=== PATIENT | male | born 1960 | race Caucasian/White ===

== ENCOUNTER 2016-06-05 22:12 | Observation (INO) | payer BC ==
--- NOTE | 2016-06-05 22:23 | EDPHY ---
H & P Stated Complaint: abd muscle spasms HPI/ROS: HPI CHIEF COMPLAINT: Left-sided back pain radiating around to the left front HISTORY OF PRESENT ILLNESS: This patient very pleasant 55-year-old male significant past medical history for hypertension, who presents to the emergency room with pleuritic pain. He tells me that for the past 2 weeks he has had left-sided mid back pain that radiates around to the left abdomen under his left diaphragm. He does tell me that he has been present for 2 weeks however it has been persistently worse over the past 24 hours it hurts every time he takes a deep breath in. Denies shortness of breath, denies chest pain. It is worse with positional changes especially when he goes to sit up. He denies midline back pain. He denies hemoptysis, cough, nausea, vomiting, diaphoresis, the pain radiates from the left mid back around to the left anterior chest diaphragmatic. Worse when he takes a deep breath in. Very sharp. Denies any trauma he does tell me that he pulled a comforter about 2 weeks ago with his dog gone and thinks he may have injured his back. 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 Exam Constitutional triage nursing summary reviewed, vital signs reviewed, awake/ alert. Eyes normal conjunctivae and sclera, EOMI, PERRLA. HENT normal inspection, atraumatic, moist mucus membranes, no epistaxis, neck supple/ no meningismus, no raccoon eyes. Respiratory clear to auscultation bilaterally, normal breath sounds, no respiratory distress, no wheezing. Cardiovascular rate normal, regular rhythm, no murmur, no edema, distal pulses normal. Gastrointestinal soft, non-tender, no rebound, no guarding, normal bowel sounds, no distension, no pulsatile mass. Genitourinary no CVA tenderness. Musculoskeletal no midline vertebral tenderness, full range of motion, no calf swelling, no tenderness of extremities, no meningismus, good pulses, neurovascularly intact. Skin there is erythema blotchiness present to the left back and left lateral chest possible zoster no vesicular lesions, pink, warm, & dry, no rash, skin atraumatic. Neurologic awake, alert and oriented x 3, AAOx3, moves all 4 extremities equally, motor intact, sensory intact, CN II-XII intact, normal cerebellar, normal vision, normal speech. Psychiatric normal mood/affect. Heme/Lymph/Immune no lymphadenopathy. Differential Diagnosis: Includes but is not limited to in a particular order: Pleurisy, pneumonia, pulmonary embolism, herpes zoster, rib contusion, rib fracture, rib splint Medical Decision Making: The patient had an IV established be medicated with IV fentanyl for pain control, placed on full campus monitor, we will obtain blood work, patient had an EKG, chest x-ray, CT angiogram of the chest to rule out pulmonary embolism. D-dimer. Be gently hydrated with IV fluids. Re-evaluation: EKG interpretation by me on record in [employer] system. Impression time of EKG 06/20/1952, this is sinus rhythm rate of 89, there is no acute ischemic changes appreciated specifically is no ST elevation, ST depression, T-wave abnormalities. No prolonged intervals. It is noted that there is a Q3T3 in lead 3. Nonspecific for pulmonary embolism. CT scan of the angiogram chest. The results of the study are shows multiple pulmonary emboli, bilateral lower lobes, on the left lower lobe there is pulmonary infarct with pleural effusion . The study was read by Dr. Perez I viewed the images myself on the PACS system. Source: Patient - Personal History Current Tetanus/Diphtheria Vaccine: Yes - Medical/Surgical History Hx Asthma: No Hx Chronic Respiratory Disease: No Hx Diabetes: No Hx Cardiac Disease: No Hx Renal Disease: No Hx Cirrhosis: No Hx Alcoholism: No Hx HIV/AIDS: No Hx Splenectomy or Spleen Trauma: No Other PMH: PSHx: appy, inguinal hernia repair. PMHx: HTN - Social History Smoking Status: Never smoked Constitutional: Initial Vital Signs Temperature (C) 36.7 C 06/05/16 22:15 Heart Rate 88 06/05/16 22:15 Respiratory Rate 17 06/05/16 22:15 Blood Pressure 175/88 H 06/05/16 22:15 O2 Sat (%) 93 06/05/16 22:15 O2 Delivery Mode Room Air O2 (L/minute) 2 Allergies/Adverse Reactions: indomethacin [From Indocin] Allergy (Mild, Verified 09/21/11 16:40) UPSET STOMACH indomethacin sodium [From Indocin] Allergy (Mild, Verified 09/21/11 16:40) UPSET STOMACH EGGS Allergy (Mild, Uncoded 09/21/11 16:40) Rash PERCOCET Allergy (Mild, Uncoded 09/21/11 16:40) DIZZY/NAUSEA Home Medications: Medication Instructions Recorded Ascorbic Acid [Vitamin C 250 mg 500 mg PO DAILY 06/05/16 (*)] Cholecalciferol Vit D3 [Vitamin D3 1,000 units PO DAILY 06/05/16 (*)] Metoprolol Succinate Xr [Toprol Xl 50 mg PO DAILY 06/05/16 50 mg (*)] Multivitamins [Multivitamin (*)] 1 each PO DAILY 06/05/16 Acetaminophen [Tylenol 325mg (*)] 650 mg PO Q4HRS PRN #0 tab 06/06/16 Enoxaparin [Lovenox 100 MG (*)] 90 mg SC BID #14 syr 06/06/16 Herbals/Supplements -Info Only 1 ea PO DAILY 06/06/16 Hydrocodone/APAP 5/325 [[place] 1 - 2 tab PO Q4HRS PRN #30 tab 06/06/16 5/325 (*)] Warfarin Sodium 5 mg PO DAILY #30 tablet 06/06/16 Medical Decision Making - Data Points Laboratory Results: Laboratory Results 06/05/16 22:40 06/05/16 22:40 Medications Given: Discontinued Medications Acetaminophen (Tylenol) 650 mg PO Q4HRS PRN PRN Reason: Pain, Mild/Fever, Can Take PO Stop: 12/03/16 00:10 Last Admin: 06/06/16 06:04 Dose: 650 mg Enoxaparin Sodium (Lovenox) 90 mg SC EDNOW ONE Stop: 06/05/16 23:36 Last Admin: 06/05/16 23:52 Dose: 90 mg Enoxaparin Sodium (Lovenox) 90 mg SC EDNOW ONE Stop: 06/05/16 23:31 Last Admin: 06/05/16 23:52 Dose: Not Given Enoxaparin Sodium (Lovenox) 90 mg SC BID HALEY Stop: 12/03/16 11:59 Last Admin: 06/06/16 12:14 Dose: 90 mg Fentanyl (Sublimaze) 100 mcg IVP EDNOW ONE Stop: 06/05/16 22:30 Last Admin: 06/05/16 22:35 Dose: 100 mcg Sodium Chloride (Ns) 1,000 mls @ 0 mls/hr IV ONCE ONE PRN Reason: As Directed Stop: 06/05/16 22:29 Last Admin: 06/05/16 23:00 Dose: 1,000 mls Sodium Chloride (Ns) 1,000 mls @ 75 mls/hr IV CONT HALEY Stop: 12/03/16 00:14 Last Admin: 06/06/16 02:30 Dose: 1,000 mls Metoprolol Succinate (Toprol Xl) 50 mg PO DAILY [facility] Stop: 12/03/16 11:59 Last Admin: 06/06/16 12:15 Dose: 50 mg Departure - Departure Disposition: [facility] Acute Clinical Impression: Bilateral pulmonary embolism, Infarct of lung, Pleural effusion Condition: Fair
[2016-06-05] MEDS ORDERED: NS 1,000 ML IV ONE (22:28)
[2016-06-05] MEDS ORDERED: fentaNYL 100 MCG/2 ML INJ IVP ONE (22:29)
--- NOTE | 2016-06-05 22:52 | CPEKG ---
Heart Rate: 89 RR Interval: 674 P-R Interval: 144 QRSD Interval: 84 QT Interval: 368 QTC Interval: 448 P Holcomb: 27 QRS Holcomb: 14 T Wave Holcomb: 4 EKG Severity - NORMAL ECG - EKG Impression: SINUS RHYTHM Electronically Signed By: Colton Campos 06-Jun-2016 10:52:54
[2016-06-05] MEDS ORDERED: IOPAMIDOL (ISOVUE 370) 100 ML BTL IV ONE (22:53)
[2016-06-05 22:57] LABS: ABSOLUTE IMMATURE GRANULOCYTES 0.13 10^3/uL (0.00-0.10); ADD DIFF? NO; ADD MORPH? NO; ADD SCAN? NO; ATYPICAL LYMPHOCYTE FLAG 0 (0-99); FRAGMENT RBC FLAG 0 (0-99); HEMATOCRIT 43.6 % (40.0-51.0); HEMOGLOBIN 15.2 g/dL (13.7-17.5); LEFT SHIFT FLG 0 (0-99); LIPEMIA HEMOLYSIS FLAG 90 (0-99); MEAN CELL HEMOGLOBIN 33.4 pg (27.9-34.1); MEAN CELL HEMOGLOBIN CONCENTR. 34.9 g/dL (32.4-36.7); MEAN CELL VOLUME 95.8 fL (81.5-99.8); MEAN PLATELET VOLUME 8.7 fL (8.7-11.7); PLATELET CLUMPS FLAG 0 (0-99); PLATELET COUNT 309 10^3/uL (150-400); RED BLOOD CELL COUNT 4.55 10^6/uL (4.40-6.38); RED CELL DISTRIBUTION WIDTH 12.4 % (11.5-15.2)
--- NOTE | 2016-06-05 22:58 | DX ---
Portable chest at 2244 hours History: Chest pain Findings: Alveolar opacity in the left lower lobe. Borderline cardiac size. No pleural effusion or pn eumothorax. Impression: 1. Left lower lobe infiltrate which may represent pneumonia. 2. Recommend follow-up until clear.
[2016-06-05 23:07] LABS: INR 1.1 (0.83-1.16); PROTIME(PATIENT) 14.1 SEC (12.0-15.0)
[2016-06-05 23:08] LABS: ALANINE AMINOTRANSFERASE 42 IU/L (21-72); ALBUMIN 3.5 g/dL (3.5-5.0); ALKALINE PHOSPHATASE 97 IU/L (38-126); ANION GAP 10 mEq/L (8-16); APTT 27.5 SEC (23.0-38.0); ASPARTATE AMINOTRANSFERASE 22 IU/L (17-59); BILIRUBIN,TOTAL 0.7 mg/dL (0.1-1.4); BILIRUBIN-CONJUGATED 0.2 mg/dL (0.0-0.5); BILIRUBIN-UNCONJUGATED 0.5 mg/dL (0.0-1.1); CALCIUM 8.7 mg/dL (8.5-10.4); CARBON DIOXIDE 30 mEq/l (22-31); CHLORIDE 102 mEq/L (97-110); CREATININE 1.5 mg/dL (0.7-1.3); GLOMERULAR FILTRATION RATE 48; GLUCOSE 119 mg/dL (70-100); MAGNESIUM 2.1 mg/dL (1.6-2.3); POTASSIUM 4.2 mEq/L (3.5-5.2); SODIUM 142 mEq/L (134-144); TOTAL PROTEIN 7.1 g/dL (6.3-8.2)
[2016-06-05 23:19] LABS: CREATINE KINASE-MB FRACTION 0.36 ng/mL (0-3.19); TROPONIN I < 0.012 ng/mL (0-0.034)
[2016-06-05] MEDS ORDERED: ENOXAPARIN 100 MG/ML SYR SC ONE (23:30)
[2016-06-05] MEDS ORDERED: ENOXAPARIN 80 MG/0.8 ML SYR SC ONE (23:35)
--- NOTE | 2016-06-05 23:40 | CT ---
CT Chest Pulmonary Angiogram With Contrast Enhancement and Multiplanar Reconstructions at 2315 hours History: Chest pain, shortness of breath Comparison: None. Technique: 1.25 mm axial multidetector helical CT angiogram imaging was performed through the chest w hile 80 mL Isovue-370 were injected intravenously without complication. The images were then transfe rred to an independent workstation where multiplanar and three-dimensional reconstructions were perfo rmed by the interpreting physician and reviewed at multiple windows. Dose reduction techniques were u tilized. CT Pulmonary Angiogram Findings: Positive intraluminal pulmonary thromboemboli identified involving s everal bilateral lower lobe pulmonary arterials. No central saddle embolus. No aortic aneurysm or dis section.. CT Chest Findings: There is normal in size without pericardial effusion. Small left pleural effusion. Left lower lobe alveolar infiltrate which may represent pulmonary infarct or pneumonitis. No pneumot horax. A few mediastinal lymph nodes without significant adenopathy. No destructive osseous lesions. Impression: 1. Positive pulmonary thromboemboli bilateral lower lobes, moderate volume. 2. Small left pleural effusion. 3. Left lower lobe infiltrate which may represent infarct or pneumonitis. 4. No pericardial effusion, aortic aneurysm, or significant adenopathy. Findings and recommendations discussed with Dr. Santos Sierra at 2335 hours.
[2016-06-06] MEDS ORDERED: ACETAMINOPHEN 325 MG TAB PO PRN (00:11)
[2016-06-06] MEDS ORDERED: ONDANSETRON 4 MG/2 ML VIAL IVP PRN (00:11)
[2016-06-06] MEDS ORDERED: HYDROCODONE/APAP 5/325 TAB PO PRN (00:11)
[2016-06-06] MEDS ORDERED: ONDANSETRON DISINTEGRATING 4 MG TAB PO PRN (00:11)
[2016-06-06] MEDS ORDERED: NS 1,000 ML IV SCH (00:15)
--- NOTE | 2016-06-06 01:53 | PDGENHP ---
History and Physical - Chief Complaint back pain with inspiration - History of Present Illness Patient is a 55 year with history of hypertension who presents to the ED complaining of pleuritic-type back pain. Patient states about 3 weeks ago he noticed right calf pain, lasted about 3 days, not associated with any obvious swelling or erythema, and he attributed it to physical exertion. The calf pain resolved and then about 2 weeks ago, patient suddenly felt left back and flank pain, which again attributed to physical exertion (pulling the bedsheets with his dog on top of them), but pain mostly occurred only with deep inspiration. Describes the pain located in his left mid back radiating across his anterior chest. He denies any associated shortness of breath, palpitations, and and over the past 2 weeks has continued with his routine exercise regimen ( stationary bike 3x/week) without any change in his exercise tolerance. Today he felt the pain had increased in severity, and given its persistence over the past 2 weeks he decided to come to the ED for further evaluation. Patient does regularly check his BP at home and has noticed the range has been higher than usual over the past 2 weeks. Patient denies any recent travel, long trips or surgeries. On arrival to the ED patient was mildly hypertensive, but afebrile and hemodynamically stable, saturating well on room air. Labs revealed normal CBC , BMP and troponin, but elevated D-dimer. EKG revealed sinus rhythm with inferior Q and T-wave inversion. CT angio was then obtained and revealed bilateral lower lobe pulmonary emboli with evidence of possible left lower lobe infarct, with associated pleural effusion. He was initiated on enoxaparin and admitted to the hospitalist service for further management. History Information - Allergies/Home Medication List Allergies/Adverse Reactions: indomethacin [From Indocin] Allergy (Mild, Verified 09/21/11 16:40) UPSET STOMACH indomethacin sodium [From Indocin] Allergy (Mild, Verified 09/21/11 16:40) UPSET STOMACH EGGS Allergy (Mild, Uncoded 09/21/11 16:40) Rash PERCOCET Allergy (Mild, Uncoded 09/21/11 16:40) DIZZY/NAUSEA Home Medications: Aspirin 81mg (*) 06/05/16 [Last Taken Unknown] CO Q-10 06/05/16 [Last Taken Unknown] Metoprolol Succinate 06/05/16 [Last Taken Unknown] Multi-Vitamin Daily 06/05/16 [Last Taken Unknown] VITAMIN D 06/05/16 [Last Taken Unknown] Vitamin C 06/05/16 [Last Taken Unknown] I have personally reviewed and updated: family history, medical history, social history, surgical history - Past Medical History Additional medical history: HTN - Surgical History Additional surgical history: appendectomy. 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 Review of Systems ROS: 10pt was reviewed & negative except for what was stated in HPI & below Physical Exam Temp Pulse Resp BP Pulse Ox 36.9 C 82 20 155/88 H 97 06/06/16 00:56 06/06/16 00:56 06/06/16 00:56 06/06/16 00:56 06/06/16 00:56 O2 (L/minute) 2 Constitutional: no apparent distress, appears nourished, not in pain Eyes: PERRL, anicteric sclera, EOMI Ears, Nose, Mouth, Throat: moist mucous membranes, hearing normal, ears appear normal, no oral mucosal ulcers Cardiovascular: regular rate and rhythym, no murmur, rub, or gallop, pulses symmetric bilaterally, No JVD, No edema Peripheral Pulses: 2+: dorsalis-pedis (R), dorsalis-pedis (L) Respiratory: no respiratory distress, no rales or rhonchi, inspiratory crackles (in L lower lung field) Gastrointestinal: normoactive bowel sounds, soft, non-tender abdomen, no palpable masses, No guarding, No rebound Genitourinary: no bladder fullness, no bladder tenderness Skin: warm, normal color, no rashes or abrasions, no fluctuance, no induration, No mottled Musculoskeletal: full muscle strength, no muscle tenderness, normal joint ROM, no joint effusions Neurologic: AAOx3, sensation intact bilaterally, CN II-XII Intact, No weakness, No numbness, No facial droop Psychiatric: interacting appropriately, not anxious, not encephalopathic, thought process linear Lab Data & Imaging Review 06/05/16 22:40 06/05/16 22:40 WBC 12.75 10^3/uL (3.80-9.50) H 06/05/16 22:40 RBC 4.55 10^6/uL (4.40-6.38) 06/05/16 22:40 Hgb 15.2 g/dL (13.7-17.5) 06/05/16 22:40 POC Hgb 15.3 gm/dL (14.5-17.3) 06/05/16 22:40 Hct 43.6 % (40.0-51.0) 06/05/16 22:40 POC Hct 45 % (42.8-50.6) 06/05/16 22:40 MCV 95.8 fL (81.5-99.8) 06/05/16 22:40 MCH 33.4 pg (27.9-34.1) 06/05/16 22:40 MCHC 34.9 g/dL (32.4-36.7) 06/05/16 22:40 RDW 12.4 % (11.5-15.2) 06/05/16 22:40 Plt Count 309 10^3/uL (150-400) 06/05/16 22:40 MPV 8.7 fL (8.7-11.7) 06/05/16 22:40 Neut % (Auto) 61.2 % (39.3-74.2) 06/05/16 22:40 Lymph % (Auto) 25.3 % (15.0-45.0) 06/05/16 22:40 [place] % (Auto) 11.4 % (4.5-13.0) 06/05/16 22:40 Eos % (Auto) 0.9 % (0.6-7.6) 06/05/16 22:40 Baso % (Auto) 0.2 % (0.3-1.7) L 06/05/16 22:40 Nucleat RBC Rel Count 0.0 % (0.0-0.2) 06/05/16 22:40 Absolute Neuts (auto) 7.81 10^3/uL (1.70-6.50) H 06/05/16 22:40 Absolute Lymphs (auto) 3.22 10^3/uL (1.00-3.00) H 06/05/16 22:40 Absolute Monos (auto) 1.45 10^3/uL (0.30-0.80) H 06/05/16 22:40 Absolute Eos (auto) 0.11 10^3/uL (0.03-0.40) 06/05/16 22:40 Absolute Basos (auto) 0.03 10^3/uL (0.02-0.10) 06/05/16 22:40 Absolute Nucleated RBC 0.00 10^3/uL (0-0.01) 06/05/16 22:40 Immature Gran % 1.0 % (0.0-1.1) 06/05/16 22:40 Immature Gran # 0.13 10^3/uL (0.00-0.10) H 06/05/16 22:40 PT 14.1 SEC (12.0-15.0) 06/05/16 22:40 INR 1.10 (0.83-1.16) 06/05/16 22:40 APTT 27.5 SEC (23.0-38.0) 06/05/16 22:40 D-Dimer 2.10 ug/mLFEU (0.00-0.50) H 06/05/16 22:40 POC Sodium 141 mEq/L (134-144) 06/05/16 22:40 Sodium 142 mEq/L (134-144) 06/05/16 22:40 POC Potassium 3.8 mEq/L (3.3-5.0) 06/05/16 22:40 Potassium 4.2 mEq/L (3.5-5.2) 06/05/16 22:40 POC Chloride 100 mEq/L (96-108) 06/05/16 22:40 Chloride 102 mEq/L (97-110) 06/05/16 22:40 Carbon Dioxide 30 mEq/l (22-31) 06/05/16 22:40 Anion Gap 10 mEq/L (8-16) 06/05/16 22:40 POC BUN 22 mg/dL (7-23) 06/05/16 22:40 BUN 21 mg/dL (7-23) 06/05/16 22:40 Creatinine 1.5 mg/dL (0.7-1.3) H 06/05/16 22:40 POC Creatinine 1.5 mg/dL (0.8-1.5) 06/05/16 22:40 Estimated GFR 48 06/05/16 22:40 Glucose 119 mg/dL (70-100) H 06/05/16 22:40 POC Glucose 123 mg/dL (70-100) H 06/05/16 22:40 Calcium 8.7 mg/dL (8.5-10.4) 06/05/16 22:40 Magnesium 2.1 mg/dL (1.6-2.3) 06/05/16 22:40 Total Bilirubin 0.7 mg/dL (0.1-1.4) 06/05/16 22:40 Conjugated Bilirubin 0.2 mg/dL (0.0-0.5) 06/05/16 22:40 Unconjugated Bilirubin 0.5 mg/dL (0.0-1.1) 06/05/16 22:40 AST 22 IU/L (17-59) 06/05/16 22:40 ALT 42 IU/L (21-72) 06/05/16 22:40 Alkaline Phosphatase 97 IU/L (38-126) 06/05/16 22:40 Creatine Kinase 42 IU/L (0-224) 06/05/16 22:40 CK-MB (CK-2) Fraction 0.36 ng/mL (0-3.19) 06/05/16 22:40 Troponin I < 0.012 ng/mL (0-0.034) 06/05/16 22:40 NT-Pro-B Natriuret Pep 55 pg/mL (0-125) 06/05/16 22:40 Total Protein 7.1 g/dL (6.3-8.2) 06/05/16 22:40 Albumin 3.5 g/dL (3.5-5.0) 06/05/16 22:40 Lipase 113.0 IU/L (23-300) 06/05/16 22:40 Visualized and Interpreted Chest x-ray results: Yes Chest X-Ray results: other (left lower effusion) Visualized and Interpreted imaging results: Yes Interpretation: CT angio chest: b/l lower lobe pulmonary emboli, moderate clot burden; L pleural effusion with possible pulmonary infarct vs atelectasis Visualized and Interpreted EKG results: Yes EKG Interpretation: Positive for: normal sinsus rhythm (S in I, Q and TWI in III ; no other st changes) Assessment & Plan Assessment: Patient is a 55-year-old male with a history of hypertension who presents to the ED with complaint of pleuritic type pain for the past 2 weeks, ED workup reveals bilateral pulmonary emboli with possible pulmonary infarct. Plan: # acute/subacute bilateral pulmonary embolism Patient describes symptoms have been present for about 2 weeks and exercise tolerance has not been affected by symptoms. Patient currently hemodynamically stable, without hypoxia and negative troponin. EKG does show nonspecific changes possibly due to RH strain. At this time there are no obvious provoking factors for the PE. Will admit, trend cardiac enzymes and check TTE in AM. Initiated on lovenox for systemic anticoagulation in the ED. Discussed in detail the options for long-term systemic anticoagulation (warfarin vs NOAC) and patient and will think options over tonight and decide in the AM. # leukocytosis Patient without fever or other clinical signs/symptoms of infection. Likely reactive, however, patient is at risk for developing pneumonia due to splinting/ atelectasis. CT chest reveals LLL infiltrate concerning for infarct vs consolidation. Will have low threshold to start antibiotics if leukocytosis increases or patient develops a fever. # elevated creatinine Slightly elevated cr at 1.5, previously noted to be 1.2 in 2013, so likely chronic kidney disease. Given he received CTA contrast load, will continue IVF overnight and reassess BMP in AM. # chronic Hypertension BP slightly elevated on presentation. Will monitor and continue home metoprolol. # dispo: admit to observation status for treatment of pulmonary embolism # gen: cardiac diet DVT ppx: on systemic lovenox Full code
[2016-06-06 02:47] LABS: COLOR YELLOW; LEUKOCYTE ESTERASE,URINE NEGATIVE (NEGATIVE); NITRITE,URINE NEGATIVE (NEGATIVE)
[2016-06-06 05:20] LABS: % IMMATURE GRANULYOCYTES 1.2 % (0.0-1.1); ABSOLUTE IMMATURE GRANULOCYTES 0.12 10^3/uL (0.00-0.10); ADD DIFF? NO; ADD MORPH? NO; ADD SCAN? NO; ATYPICAL LYMPHOCYTE FLAG 30 (0-99); FRAGMENT RBC FLAG 0 (0-99); HEMATOCRIT 36.7 % (40.0-51.0); HEMOGLOBIN 12.7 g/dL (13.7-17.5); LEFT SHIFT FLG 10 (0-99); LIPEMIA HEMOLYSIS FLAG 90 (0-99); MEAN CELL HEMOGLOBIN 33.6 pg (27.9-34.1); MEAN CELL HEMOGLOBIN CONCENTR. 34.6 g/dL (32.4-36.7); MEAN CELL VOLUME 97.1 fL (81.5-99.8); MEAN PLATELET VOLUME 8.9 fL (8.7-11.7); PLATELET CLUMPS FLAG 10 (0-99); PLATELET COUNT 234 10^3/uL (150-400); RED BLOOD CELL COUNT 3.78 10^6/uL (4.40-6.38); RED CELL DISTRIBUTION WIDTH 12.3 % (11.5-15.2)
[2016-06-06 05:29] LABS: INR 1.22 (0.83-1.16); PROTIME(PATIENT) 15.4 SEC (12.0-15.0)
[2016-06-06 05:30] LABS: APTT 34.8 SEC (23.0-38.0)
[2016-06-06 05:41] LABS: ANION GAP 7 mEq/L (8-16); CALCIUM 8.2 mg/dL (8.5-10.4); CARBON DIOXIDE 25 mEq/l (22-31); CHLORIDE 109 mEq/L (97-110); GLOMERULAR FILTRATION RATE > 60; GLUCOSE 104 mg/dL (70-100); MAGNESIUM 2.1 mg/dL (1.6-2.3); POTASSIUM 4.6 mEq/L (3.5-5.2); SODIUM 141 mEq/L (134-144)
[2016-06-06 05:50] LABS: TROPONIN I < 0.012 ng/mL (0-0.034)
--- NOTE | 2016-06-06 08:52 | CPEKG ---
Heart Rate: 78 RR Interval: 769 P-R Interval: 152 QRSD Interval: 90 QT Interval: 392 QTC Interval: 447 P Starford: 28 QRS Starford: 19 T Wave Starford: -16 EKG Severity - BORDERLINE ECG - EKG Impression: SINUS RHYTHM EKG Impression: BORDERLINE T ABNORMALITIES, INFERIOR LEADS Electronically Signed By: Colton Campos 06-Jun-2016 10:52:50
--- NOTE | 2016-06-06 09:09 | US ---
Ultrasound and Venous Duplex Doppler Study of the Right and Left Lower Extremities Clinical History: 55-year-old male noted to have moderate volume bilateral lower lobe pulmonary arter y thromboemboli on June 05, 2016. Evaluate for DVT. Technique: A high frequency transducer was used for imaging and Doppler study of the veins of the ri ght and left lower extremities. Pulsed Doppler and color Doppler were utilized, along with various maneuvers to assess flow in the veins. Comparison Study: None. Findings: RIGHT LEG: The deep veins are normally compressible between the groin and the upper calf, and have no rmal Doppler waveforms. There is no sonographic evidence of deep venous thrombosis. The greater saphe nous vein is compressible. The popliteal fossa is unremarkable. LEFT LEG: The deep veins are normally compressible between the groin and the upper calf, and have nor mal Doppler waveforms, with the exception of the left popliteal vein and the paired peroneal veins, w hich are noncompressible and contain hypoechoic clot. The greater saphenous vein is compressible. The popliteal fossa is unremarkable. Impression: 1. There is no sonographic evidence of deep or superficial vein thrombosis in the right lower extremi ty. 2. There is deep venous thrombosis identified in the left popliteal vein, and in both of the left per meza veins.
[2016-06-06 09:32] VITALS: O2SAT 95
--- NOTE | 2016-06-06 10:39 | ECHO ---
[id number] + + [id number] : : [place] [id number] : : [phone] + + Adult Echocardiographic Report + ---------+ :Name: LISA BANKS RStudy Date: 06/06/2016 08:34 AM : : Hospital Admission Number: [id number] Michelle day: 240: :: 1960 Gender: Male Height: 67 i n : :Age: 55 yrs Race: WH Weight: 200 lb : :Reason For Study: Eval LV Fx : : BSA: 2.0 met ers2 : :History: Pulmonary Embolism : + ---------+ MMode/2D Measurements & Calculations IVSd: 0.80 cm LVIDd: 4.6 cm FS: 37.2 % Ao root diam: 2.9 cm LVPWd: 0.94 cm LVIDs: 2.9 cm EDV(Teich): 95.6 ml ACS: 1.9 cm ESV(Teich): 31.4 ml EF(Teich): 67.2 % Normal Measurement Values: + + :LVIDd (3.5-5.7cm) IVSd (0.6-1.1cm) LVPWd (0.6-1.1cm) Aortic Root (2.0-3.7cm)Left Atrium (1.5-4.0cm): :LV Vol(d) (76-115ml) LV Vol(s) (29-48ml) Ejec Fraction (50-65%)PV Brian (0.6- 1.2m/s) TV Brian (0.4-1.0m/s) : :MV E Brian (0.8-1.0m/s)MV A Brian (0.3-1.0m/s)LVOT Brian (0.7-1.2m/s) Asc Ao Brian ( 0.9-1.8m/s) : + + Doppler Measurements & Calculations MV E max brian: Ao V2 max: LV V1 max: PA V2 max: 77.0 cm/sec 167.0 cm/sec 111.6 cm/sec 90.9 cm/sec MV A max brian: Ao max PG: LV V1 max PG: PA max P.2 cm/sec 11.1 mmHg 5.0 mmHg 3.3 mmHg MV E/A: 0.77 TR max brian: 262.0 cm/sec TR max P.5 mmHg RAP systole: 5.0 mmHg RVSP(TR): 32.5 mmHg Left Ventricle The left ventricle is normal in size. There is normal left ventricular wall thickness. The left ventricular ejection fraction is normal. There is Doppler evidence for diastolic dysfunction. Ejection Fraction = 68%. No regional wall motion abnormalities noted. Right Ventricle The right ventricle is normal in size and function. Atria The left atrial size is normal. Right atrial size is normal. Mitral Valve The mitral valve is normal in structure and function. There is no evidence of mitral valve prolapse. There is no mitral valve stenosis. There is trace mitral regurgitation. Tricuspid Valve The tricuspid valve is normal in structure and function. There is trace tricuspid regurgitation. Right ventricular systolic pressure is normal. Aortic Valve The aortic valve is normal in structure and function. There is no aortic stenosis. There is no aortic insufficiency. Pulmonic Valve The pulmonic valve is normal in structure and function. There is no pulmonic valvular regurgitation. Great Vessels The aortic root is normal size. Pericardium/Pleural There is no pericardial effusion. Conclusion A complete two-dimensional transthoracic echocardiogram was performed (2D, M-mode, Doppler and color flow Doppler). The left ventricular ejection fraction is normal. There is Doppler evidence for diastolic dysfunction. Ejection Fraction = 68%. No regional wall motion abnormalities noted. The right ventricle is normal in size and function. The left atrial size is normal. Right atrial size is normal. The mitral valve is normal in structure and function. There is trace mitral regurgitation. The tricuspid valve is normal in structure and function. There is trace tricuspid regurgitation. Right ventricular systolic pressure is normal. The aortic valve is normal in structure and function. There is no aortic insufficiency. The pulmonic valve is normal in structure and function. The aortic root is normal size. There is no pericardial effusion. Final Reading Physician: Brody López signed on 06/06/2016 10:39 AM Ordering Physician: Donna Perez Performed By: Serafin Fairchild, [email or web address]
--- NOTE | 2016-06-06 11:37 | PDDCSUM ---
Discharge Summary Discharge Summary: Dates of service: 06/06-06/06/2016y Discharge dx: # bilateral small volume PE # LLE DVT # diana # leukocytosis Procedures performed: extremity venous US, chest CTA, echocardiogram Consultation: none HPI: 55 yo M, to a nurse, Teresa from this hospital, with no sig PMH presenting with acute pleuritic back pain and sob found to be 2/2 PE. He notes that 3 weeks before he suffered a muscle strain in his left calf moving his airplane into the hangar, it hurt for 4 days and he was moving around less 2/2 the pain. Hospital course by problem # PE/DVT: with no known significant RFs other than a calf strain and decreased mobility following that presenting with left lower extremity dvt and bilateral PE. Started on lovenox and warfarin, counseled regarding risks and benefits and things to watch out for. Will f/u with PCP for INR testing in a couple of days, continue bridge therapy with lovenox until INR > 2. # diana: in the setting of pain related to above and likely pre renal , has resolved # leukocytosis: likely stress response # htn: on metoprolol with good bp control on that, initial htn likely related to pain Dispo: Dc home in good condition, f/u with PCP and have INR checked on 06/08. F/u with hematology within the next three months for consideration of hypercoagulable w/u. Meds: see EHR, new meds including lovenox, warfarin, short course of vicodin > 35 min spent in dc of this patient, more than half in face to face counseling of patient and his Teresa regarding f/u care plans and coumadin counseling.
[2016-06-06 11:59] VITALS: BP 137/73; PULSE 77; RESP 20; TEMP 98.9
[2016-06-06] MEDS ORDERED: METOPROLOL SUCCINATE XR 50 MG TAB PO SCH (12:00)
[2016-06-06] MEDS ORDERED: ENOXAPARIN 100 MG/ML SYR SC SCH (12:00)
== END 2016-06-06 15:06 | disposition home or self-care (01) ==
LOC: INTOOBSV 23:39 → F2N 06-06 01:05
PROVIDERS: ADMIT Internal Medicine; ATTEND Internal Medicine
DX: I26.99 Other pulmonary embolism without acute cor pulmonale (principal); I82.432 Acute embolism and thrombosis of left popliteal vein; N17.9 Acute kidney failure, unspecified; I10 Essential (primary) hypertension
CPT/HCPCS: 71010; 71275; 93005; 93306; 93970; G0378; 82947-QW; 96374; J1650; J3010; Q9967

== ENCOUNTER 2017-04-02 10:46 | Emergency (ER) | payer BC ==
[2017-04-02 11:03] VITALS: RESP 18; TEMP 97.9
--- NOTE | 2017-04-02 11:36 | EDPHY ---
H & P Time Seen by Provider: 04/02/17 11:05 HPI/ROS: CHIEF COMPLAINT: Left lower extremity pain and swelling HISTORY OF PRESENT ILLNESS: 56-year-old male with a history of DVT presents with left lower extremity pain and swelling. 1 week ago he was kicking a ladder to get it to be level on the ground. He did not have pain until 3 days later, when he developed pain the posterior aspect of his left calf. Persistent pain since then, associated with swelling around the ankle. History of DVT in the left leg and PE in June 2016. He was on Coumadin for 6 months and stopped Coumadin in November 2016. REVIEW OF SYSTEMS: Constitutional: No fever, no chills Eyes: No visual changes ENT: No sore throat Respiratory: No cough, no shortness of breath Cardiac: No chest pain Gastrointestinal: no vomiting, no abdominal pain Genitourinary: no dysuria Skin: No rash Neurological: No headache, no weakness Psychiatric: No depression Past Medical/Surgical History: DVT Smoking Status: Never smoked Physical Exam: General Appearance: Alert, pleasant Eyes: Pupils equal and round, no conjunctival pallor ENT, Mouth: Mucous membranes moist Neck: Normal inspection Respiratory: Lungs are clear to auscultation Cardiovascular: Regular rate and rhythm Gastrointestinal: Abdomen is soft and nontender Neurological: A&O, nonfocal, normal gait Skin: Warm and dry, no rash Extremities: left leg-tender over the posterior aspect of the distal leg, negative Christiana's sign, no calf swelling, Achilles tendon intact Vascular: 2+ pedal pulses Psychiatric: Mood and affect normal Constitutional: Initial Vital Signs Temperature (C) 36.6 C 04/02/17 11:00 Heart Rate 86 04/02/17 11:00 Respiratory Rate 18 04/02/17 11:00 Blood Pressure 164/86 H 04/02/17 11:00 O2 Sat (%) 96 04/02/17 11:00 O2 Delivery Mode Room Air Allergies/Adverse Reactions: indomethacin [From Indocin] Allergy (Mild, Verified 09/21/11 16:40) UPSET STOMACH indomethacin sodium [From Indocin] Allergy (Mild, Verified 09/21/11 16:40) UPSET STOMACH EGGS Allergy (Mild, Uncoded 09/21/11 16:40) Rash PERCOCET Allergy (Mild, Uncoded 09/21/11 16:40) DIZZY/NAUSEA Home Medications: Medication Instructions Recorded Metoprolol Succinate Xr [Toprol Xl 75 mg PO DAILY 06/05/16 50 mg (*)] Aspirin 81mg (*) 04/02/17 Enoxaparin [Lovenox 100 MG (*)] 90 mg SQ Q12 #4 syr 04/02/17 Warfarin Sodium [Coumadin 5MG (*)] 5 mg PO DAILY #10 tab 04/02/17 Medical Decision Making - Diagnostics Imaging Results: Imaging Impressions Extremity Venous Study 04/02/17 11:31 Impression: There is occlusive deep venous thrombosis identified in one of the paired peroneal veins in the left calf. Findings were discussed with QUINTON FELIPE MD at 12:56, on 04/02/2017. ED Course/Re-evaluation: Ultrasound results discussed with the patient and his . Lovenox 90 mg subcu given. Coumadin 5 mg orally. Prescriptions were vented. No evidence of pulmonary embolism by history or on exam. He will follow up with his physician in 2 days for a check of his INR. Differential Diagnosis: Differential diagnosis includes though it is not limited to fracture, cellulitis , tendon disruption, neurovascular compromise. - Data Points Medications Given: Discontinued Medications Enoxaparin Sodium (Lovenox) 90 mg SC EDNOW ONE Stop: 04/02/17 13:09 Last Admin: 04/02/17 13:26 Dose: Not Given Enoxaparin Sodium (Lovenox) 90 mg SC EDNOW ONE Stop: 04/02/17 13:16 Last Admin: 04/02/17 13:27 Dose: 90 mg Warfarin Sodium (Coumadin) 5 mg PO EDNOW ONE Stop: 04/02/17 13:32 Last Admin: 04/02/17 13:36 Dose: 5 mg Departure - Departure Disposition: Home, Routine, Self-Care Clinical Impression: Deep vein thrombosis (DVT) of left lower extremity Qualifiers: Affected thrombotic vein of extremity: other lower extremity vein Chronicity: acute Qualified Code(s): I82.492 - Acute embolism and thrombosis of other specified deep vein of left lower extremity Condition: Good Instructions: Warfarin (By mouth), Enoxaparin (By injection), Deep Venous Thrombosis (ED) Additional Instructions: You have a blood clot in the left peroneal vein. Follow-up with your doctor in 2 days for an INR check. Referrals: Yessy Cooper MD [Primary Care Provider] - As per Instructions Prescriptions: Enoxaparin [Lovenox 100 MG (*)] 90 mg SQ Q12 #4 syr Warfarin Sodium [Coumadin 5MG (*)] 5 mg PO DAILY #10 tab
[2017-04-02] MEDS ORDERED: ENOXAPARIN 80 MG/0.8 ML SYR SC ONE (13:08)
[2017-04-02] MEDS ORDERED: ENOXAPARIN 100 MG/ML SYR SC ONE (13:15)
[2017-04-02] MEDS ORDERED: WARFARIN SODIUM 5 MG TAB PO ONE (13:31)
[2017-04-02 13:36] VITALS: BP 157/93; PULSE 74; O2SAT 95
== END 2017-04-02 13:36 | disposition home or self-care (01) ==
DX: I82.492 Acute embolism and thrombosis of other specified deep vein of left lower extremity (principal); Z79.82 Long term (current) use of aspirin; Z79.01 Long term (current) use of anticoagulants
CPT/HCPCS: J1650